=== PATIENT | male | born 2000 | race African-American/Black ===

== ENCOUNTER 2021-02-27 18:33 | Emergency (ER) | payer BC | END 2021-02-27 19:15 | LOC: NAV ERS 18:33 | DX: J06.9 Acute upper respiratory infection, unspecified (principal); B34.9 Viral infection, unspecified; Z20.822 Contact with and (suspected) exposure to COVID-19 | CPT/HCPCS: 99283; U0003; U0005 ==

== ENCOUNTER 2021-05-03 21:37 | Emergency (ER) | payer BC, OTHER ==
[2021-05-03] MEDS ORDERED: Ketorolac Tromethamine 30 MG/ML VIAL ONE (21:59)
[2021-05-03] MEDS ORDERED: Bacitracin 1 PK ONE (21:59)
[2021-05-03] MEDS ORDERED: Boostrix 0.5 ML (Tdap) VIAL ONE (21:59)
== END 2021-05-03 23:00 | disposition home or self-care (01) ==
LOC: NAV ERS 21:37
DX: S80.211A Abrasion, right knee, initial encounter (principal); M25.511 Pain in right shoulder; M54.50 Low back pain, unspecified; V43.52XA Car driver injured in collision with other type car in traffic accident, initial encounter; W22.11XA Striking against or struck by driver side automobile airbag, initial encounter; Y92.411 Interstate highway as the place of occurrence of the external cause; Z23 Encounter for immunization
CPT/HCPCS: 72100; 90471; 90715; 96374; J1885